=== PATIENT | female | born 1980 | race Hispanic/Latino ===

== ENCOUNTER 2018-08-11 13:45 | Day surgery (SDC) | payer BC ==
[~2018-08-11 13:45] MED LIST: LIDOCAINE 2% INJ 100 MG/5 ML SDV (FOR ANES.) As Ordered; PROPOFOL 200 MG/20 ML VIAL As Ordered; fentaNYL 100 MCG/2 ML INJECTION (J3010) As Ordered
[2018-08-11] MEDS: NS 1,000 ML IV (14:00)
[2018-08-11] MEDS ORDERED: PROPOFOL 200 MG/20 ML VIAL As Ordered (16:13)
== END 2018-08-11 17:09 | disposition home or self-care (01) ==
LOC: M OPP 13:45
DX: D50.9 Iron deficiency anemia, unspecified (principal); D12.5 Benign neoplasm of sigmoid colon; K29.70 Gastritis, unspecified, without bleeding; B96.81 Helicobacter pylori [H. pylori] as the cause of diseases classified elsewhere; I10 Essential (primary) hypertension; K92.1 Melena; R19.7 Diarrhea, unspecified; K21.9 Gastro-esophageal reflux disease without esophagitis; R12 Heartburn; Z86.19 Personal history of other infectious and parasitic diseases; Z79.899 Other long term (current) drug therapy
CPT/HCPCS: 45385

== ENCOUNTER → 2019-04-21 | Outpatient (CLI) | payer BC ==
[~2019-04-21] MED LIST changes: +CIPR1TAB20 PO; +FERR325T82 PO; +FLAG500T PO; -LIDOCAINE 2% INJ 100 MG/5 ML SDV (FOR ANES.) As Ordered; +ONDA4SOL PO; -PROPOFOL 200 MG/20 ML VIAL As Ordered; +VITA500T PO; -fentaNYL 100 MCG/2 ML INJECTION (J3010) As Ordered
--- NOTE | 2019-04-21 09:43 | REP ---
RENAL ULTRASOUND AND DUPLEX DOPPLER EVALUATION OF THE RENAL ARTERIES: Real-time sonographic evaluation of the kidneys performed. The kidneys are normal in size and echotexture, right kidney measuring 1.0 x 5.2 x 5.6 cm and left kidney 10.4 x 7.0 x 6.3 cm. There is no hydronephrosis or renal mass bilaterally. No renal stones are seen. Urinary bladder is mildly distended and grossly unremarkable. Real-time ultrasound evaluation and duplex Doppler interrogation of the renal arteries is performed bilaterally. Peak systolic velocity of the abdominal aorta at the level of the renal arteries is 95.7 cm/s. Peak systolic velocity of the main right renal artery proximally is 150.4 cm/s, renal to aortic ratio is 1.6. Resistive indices right kidney range between 0.5 and 0.6. Acceleration times are in the range of 0.03. Peak systolic velocity of the main left renal artery is 117.5 cm/s, renal to aortic ratio 1.2. Resistive indices left kidney range between 0.5 and 0.6. Acceleration times range between 0.03 and 0.05. IMPRESSION: No compelling duplex Doppler sonographic evidence of significant renal artery stenosis bilaterally. Electronically Signed by Sharif Whittington MD 04/21/2019 02:11 P
== END ==
LOC: M RAD 07:32
PROVIDERS: ATTEND Student in an Organized Health Care Education/Training Program
DX: I10 Essential (primary) hypertension (principal)

== ENCOUNTER → 2019-07-19 | Outpatient (CLI) | payer BC ==
--- NOTE | 2019-07-20 12:33 | REP ---
BILATERAL MAMMOGRAM WITH 3D TOMOSYNTHESIS, BASELINE STUDY: Family history of breast cancer over age 50, maternal aunt. [facility] lifetime risk of breast cancer 12.7%. MLO and CC views of bilateral breasts were performed with 3D tomosynthesis. Breast parenchyma is moderately dense bilaterally. No definite mass or architectural distortion is seen. Fine linear calcifications are seen laterally in the right breast, which may be ductal. Recommend magnification views to further evaluate. IMPRESSION: BIRADS 0: BI-RADS/ACR category 0 mammogram, Incomplete: Need additional imaging evaluation and/or prior mammograms for comparison. ACR 0 incomplete. Thin linear calcifications may be associated with a couple of tiny punctate calcifications in the outer right breast. Recommend magnification views to further evaluate. This mammogram was interpreted with the aid of an FDA-approved computer-aided detection system. A. Negative x-ray reports should not delay biopsy if a dominant or clinically suspicious mass is present. B. Four to eight percent of cancers are not identified by x-ray. C. Adenosis and dense breasts may obscure an underlying neoplasm. The patient states she/he had a clinical breast exam in June 2019. The patient letter being requested is M0.
== END ==
LOC: M WHC 09:10
PROVIDERS: ATTEND Student in an Organized Health Care Education/Training Program
DX: R92.2 Inconclusive mammogram (principal)

== ENCOUNTER → 2019-07-19 | Outpatient (REF) | payer BC ==
[2019-07-21 14:31] LABS: HPV HYBRID CAPTURE II Negative (Negative)
== END ==
LOC: M SFHCWAGY 09:13
PROVIDERS: ATTEND Nurse Practitioner Women's Health
DX: Z12.4 Encounter for screening for malignant neoplasm of cervix (principal)
CPT/HCPCS: 87624; G0123

== ENCOUNTER → 2019-08-02 | Outpatient (CLI) | payer BC ==
--- NOTE | 2019-08-02 14:57 | REP ---
DIAGNOSTIC MAMMOGRAM RIGHT BREAST: Multiple magnification views of the right breast performed and correlated with the recent baseline mammogram 07/19/2019, which showed possible microcalcifications in the outer right breast. Today's magnification views show that these represent vascular calcifications and are therefore, benign. No suspicious clusters of microcalcifications are seen. IMPRESSION: BIRADS 2: BI-RADS/ACR category 2 mammogram. Benign Findings. ACR 2 benign. The tiny calcifications laterally in the right breast correspond to vascular calcifications that are benign. Recommend followup mammogram in 1 year. Patient letter being requested is M1. Electronically Signed by Sharif Whittington MD 08/04/2019 09:50 A
== END ==
LOC: M RAD 09:43
PROVIDERS: ATTEND Student in an Organized Health Care Education/Training Program
DX: R92.2 Inconclusive mammogram (principal); N63.10 Unspecified lump in the right breast, unspecified quadrant

== ENCOUNTER → 2019-08-10 | Outpatient (CLI) | payer BC ==
[2019-08-10 10:43] LABS: HEMATOCRIT 36.7 % (36.0-47.0); HEMOGLOBIN 12.1 g/dl (12.0-15.5); MEAN CORPUSCULAR HEMOGLOBIN 28.5 pg (27.0-33.0); MEAN CORPUSCULAR VOLUME 86.4 fl (80.0-96.0); PLATELET COUNT, AUTOMATED 280 10^3/uL (150-450); RED BLOOD COUNT 4.25 10^6/uL (4.00-5.40); WHITE BLOOD COUNT 8.4 10^3/uL (4.0-10.0)
[2019-08-10 11:04] LABS: BLOOD UREA NITROGEN 11 MG/DL (7-18); CALCIUM LEVEL 8.9 MG/DL (8.5-10.1); CARBON DIOXIDE LEVEL 34 MEQ/L (21-32); CHLORIDE LEVEL 98 MEQ/L (98-107); CREATININE FOR GFR 0.65 MG/DL (0.55-1.30); GLOMERULAR FILTRATION RATE > 60.0 (>58); GLUCOSE, FASTING 100 MG/DL (70-100); POTASSIUM SERUM 3.5 MEQ/L (3.5-5.1); SODIUM LEVEL 139 MEQ/L (136-145)
== END ==
LOC: M LAB 09:41
DX: D64.9 Anemia, unspecified (principal); I10 Essential (primary) hypertension